=== PATIENT | female | born 1975 | race Caucasian/White ===

== ENCOUNTER 2022-12-22 10:27 | Emergency (ER) | payer BC, SELFPAY ==
[2022-12-22 10:43] VITALS: BP 148/94; PULSE 75; RESP 16; TEMP 36.1; O2SAT 99; BMI 43.4
--- NOTE | 2022-12-22 11:44 | CRLHL7_ITS ---
For Patients: As a result of the Century Cures Act, medical imaging exams and procedure reports are released immediately into your electronic medical record. You may view this report before your referring provider. If you have questions, please contact your health care provider. INDICATION: Dysfunctional bleeding. TECHNIQUE: Ultrasound pelvis transabdominal and transvaginal for better assessment or to better visualize the endometrium. Real-time sonographic images with spectral and color Doppler imaging of the ovaries were obtained. COMPARISON: None. FINDINGS: Uterus: 10.0 x 4.8 x 5.1 cm. Normal echotexture of the myometrium. Possible 2.1 centimeter intramural fibroid along the fundus. Postsurgical changes of scar along the anterior lower uterine segment, measuring 1.7 x 2.1 x 1.3 centimeters, and encroaching the endocervical/endometrial canal with some scant vascularity. Endometrium: Transvaginal imaging was performed to better evaluate the endometrium. Endometrial thickness measures 11 mm. No sign of endometrial mass or fluid. Right ovary is not seen. Left ovary 4.2 x 3.7 x 3.3 centimeters. No left ovarian or adnexal masses. Normal arterial and venous blood flow is demonstrated in left ovary. 3.7 centimeter simple appearing left ovarian cyst. Cul-de-sac: No significant free fluid. IMPRESSION: Probable 2.1 centimeter intramural fibroid along the fundus. Postsurgical changes of scar along the anterior lower uterine segment, measuring 1.7 x 2.1 x 1.3 centimeters, and encroaching the endocervical/endometrial canal with some scant vascularity. Consider direct visualization for further evaluation. Otherwise, normal uterus and endometrium. Nonvisualization of the right ovary. Normal left ovary with 3.7 centimeter simple ovarian cyst. Dictated by Brett Grewal MD @ 12/22/2022 1:20:21 PM (Electronically Signed)
--- NOTE | 2022-12-22 11:45 | ED_ITS ---
HPI - General Adult General Chief complaint: Vaginal Bleeding Stated complaint: Heavy menstrual bleeding Time Seen by Provider: 12/22/22 11:32 History of Present Illness HPI narrative: This 47-year-old female comes in because of vaginal bleeding and cramping that began this morning. She has had dysfunctional uterine bleeding in the past and had an ablation about a year ago. She has had endometrial biopsies with negative results. She is not taking any hormones. 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 She states that her vaginal bleeding stopped several months ago when she started taking cromolyn. She feels that the dysfunctional uterine bleeding and mast cell disease are somehow related. She does not report any lightheadedness or shortness of breath. She states that she saturated 3 pads in 75 minutes. She does not report any fevers. She continues to have some pain but denies any treatments at this time. Related Data Home Medications Medication Instructions Recorded Confirmed clobetasol 0.05 % topical foam g topical 11/02/22 11/02/22 cromolyn 5.2 mg/spray (4 %) nasal 1 spray intranasal Q6H PRN 11/02/22 12/22/22 spray dextroamphetamine-amphetamine ER 40 mg PO DAILY 11/02/22 12/22/22 20 mg 24hr capsule,extend release (Adderall XR) epinephrine 0.3 mg/0.3 mL 0.3 ml IM PRN 11/02/22 11/02/22 injection, auto-injector fluticasone 250 mcg-salmeterol 50 1 inh inhalation Q12H 11/02/22 12/22/22 mcg/dose blistr powdr for inhalation (Advair Diskus) hydroxyzine HCl 25 mg tablet 25 mg PO Q8H 11/02/22 12/22/22 montelukast 10 mg tablet 10 mg PO HS 11/02/22 12/22/22 cetirizine 10 mg capsule (All Day 10 mg PO BID PRN 12/22/22 12/22/22 Allergy (cetirizine)) famotidine 40 mg tablet (Pepcid) 40 mg PO BID 12/22/22 12/22/22 fluticasone propionate 50 2 spray intranasal DAILY PRN 12/22/22 12/22/22 mcg/actuation nasal spray,suspension (Flonase Allergy Relief) Previous Rx's Medication Instructions Recorded tranexamic acid 650 mg tablet 1,300 mg PO TID PRN #30 tabs 12/22/22 Allergies Allergy/AdvReac Type Severity Reaction Status Date / Time Cephalosporins Allergy Intermediate Rash Verified 12/22/22 10:49 penicillin G Allergy Intermediate Rash Verified 12/22/22 10:49 Sulfa (Sulfonamide Allergy Intermediate Rash Verified 12/22/22 10:49 Antibiotics) fexofenadine [From Rahel] Allergy Mild Rash Verified 12/22/22 10:49 clartin Allergy Mild rash Uncoded 12/22/22 10:49 Review of Systems Status of ROS: Reports: 10 or more systems reviewed and unremarkable except as noted in History and below Narrative: Constitutional: No fevers, no weight gain or loss. Eyes: No discharge. No vision changes. HENT: No congestion, no sore throat, no ear pain. Cardiovascular: No chest pain, no palpitations. Respiratory: No shortness of breath, no wheezes, no cough. Gastrointestinal: No vomiting, no diarrhea. Crampy abdominal pain. Genitourinary: No dysuria, no hematuria. Dysfunctional uterine bleeding. She is still menstruating. Musculoskeletal: Normal range of motion. Skin: No rashes, no pruritis. Neurological: No dizziness, weakness, sensory change, speech change. Endo/Heme/Allergies: No bruising or bleeding. No polydipsia. Pysch: no suicidality, no anxiety, no insomnia. All other systems reviewed and are negative. [facility] Social History Smoking Status: Never smoker Do you use any of these nicotine containing products: None Second hand tobacco smoke exposure: No How often do you have a drink containing alcohol: never How often do you have six or more drinks on one occasion: Never AUDIT-C Alcohol total score: 0 Non-prescribed substance use: denies use service: No Exam Narrative: Exam Narrative: Constitutional: Well-developed, well-nourished, no acute distress. HEENT: Normocephalic, atraumatic. Neck: Normal range of motion. Nontender. Supple. Heart: Regular. No murmurs. Normal rate. Intact distal pulses. Lungs: Clear to auscultation. No chest discomfort. No wheezes, rhonchi, or rales. Abdomen: Normal bowel sounds. Tenderness in the lower abdomen. No rebound tenderness. Genitalia: Deferred. Back: No midline tenderness. Normal range of motion. Extremities: Normal range of motion. No injury. Skin: Intact. No rash. Warm. No erythema or pallor. Neurologic: No altered sensation. No weakness. Alert and oriented. Psychiatric: No suicidality. No anxiety or depression. No insomnia. Nursing notes and vitals signs are reviewed. Const: Vital Signs, click to edit/add: Vital Signs - 24 hr 12/22/22 10:43 12/22/22 13:56 Temperature 97.0 F L 98.1 F Pulse Rate [Right Pulse Oximeter] 75 76 Respiratory Rate 16 18 Blood Pressure [Ri ght Upper Arm] 148/94 H 147/94 H Pulse Oximetry 99 99 Oxygen Delivery Me thod Room Air Room Air Course Vital Signs Vital signs: Initial Vital Signs Temperature 97.0 F L 12/22/22 10:43 Temperature Source Temporal Artery Scan 12/22/22 10:43 Pulse Rate 75 12/22/22 10:43 Respiratory Rate 16 12/22/22 10:43 Blood Pressure 148/94 H 12/22/22 10:43 Blood Pressure Mean 112 12/22/22 10:43 Blood Pressure Position Sitting 12/22/22 10:43 Pulse Oximetry 99 12/22/22 10:43 Oxygen Delivery Method 12/22/22 10:43 Vital Signs Temperature 97.0 F L 12/22/22 10:43 Pulse Rate 75 12/22/22 10:43 Respiratory Rate 16 12/22/22 10:43 Blood Pressure 148/94 H 12/22/22 10:43 Pulse Oximetry 99 12/22/22 10:43 Oxygen Delivery Method 12/22/22 10:43 Temperature 98.1 F 12/22/22 13:56 Pulse Rate 76 12/22/22 13:56 Respiratory Rate 18 12/22/22 13:56 Blood Pressure 147/94 H 12/22/22 13:56 Pulse Oximetry 99 12/22/22 13:56 Oxygen Delivery Method 12/22/22 13:56 Medical Decision Making MDM Narrative Medical decision making narrative: This patient comes in with sizable amount of uterine bleeding. She saturated through her clothes while at work today. She did have some significant cramping at the time and continues to have some pain. Her hemoglobin returns in normal range and vital signs are normal also. This patient has some underlying complic ating factors including mast cell disease and connective tissue disorder. I did speak with the OBGYN physician on-call, Dr. Morales, who recommended using tranexamic acid to help with symptoms. This is most likely an anovulatory menses as she is approaching menopause. The patient is okay to return home and is encouraged to follow-up with her primary physician. She does have a follow- up appointment in 3 days. A prescription for tranexamic acid is provided. Lab Data Labs: Lab Results 12/22/22 12/22/22 12/22/22 Range/Units 11:55 11:55 11:55 WBC 10.26 (4.50-11.00) K/uL RBC 5.18 (4.00-5.20) m/uL Hgb 14.4 (12.0-16.0) gm/dL Hct 45.2 (33.0-51.0) % MCV 87 (80-100) fL MCH 28 (26-34) pg MCHC 32 (32-36) gm/dL RDW Coeff of Santos 13.1 (11.5-15.5) % Plt Count 339 (140-440) K/uL Neut % (Auto) 72.0 (42.0-72.0) % Lymph % (Auto) 19.9 L (20-44) % Carver % (Auto) 6.3 (0.0-11.0) % Eos % (Auto) 1.6 (0.0-7.0) % Baso % (Auto) 0.1 (0.0-3.0) % Neut # (Auto) 7.39 H (1.7-7.0) K/uL Lymph # (Auto) 2.00 (0.90-2.90) K/uL Carver # (Auto) 0.60 (0.00-0.90) K/UL Eos # (Auto) 0.16 (0.00-0.50) K/uL Baso # (Auto) 0.01 (0.00-0.30) K/uL Sodium 139 (135-149) mmol/L Potassium 3.7 (3.6-5.1) mmol/L Chloride 105 (96-114) mmol/L Carbon Dioxide 30 (20-32) mmol/L BUN 10 (5-24) mg/dL Creatinine 0.6 (0.5-1.5) mg/dL Estimated Creat Clear 99.02 Estimated GFR 111 ml/min Glucose 86 (60-115) mg/dL Calcium 8.9 (8.4-10.6) mg/dL HCG, Qual Negative (Negative) Imaging Data US Pelvic: Radiologist's impression: FINDINGS: Uterus: 10.0 x 4.8 x 5.1 cm. Normal echotexture of the myometrium. Possible 2.1 centimeter intramural fibroid along the fundus. Postsurgical changes of scar along the anterior lower uterine segment, measuring 1.7 x 2.1 x 1.3 centimeters, and encroaching the endocervical/endometrial canal with some scant vascularity. Endometrium: Transvaginal imaging was performed to better evaluate the endometrium. Endometrial thickness measures 11 mm. No sign of endometrial mass or fluid. Right ovary is not seen. Left ovary 4.2 x 3.7 x 3.3 centimeters. No left ovarian or adnexal masses. Normal arterial and venous blood flow is demonstrated in left ovary. 3.7 centimeter simple appearing left ovarian cyst. Cul-de-sac: No significant free fluid. IMPRESSION: Probable 2.1 centimeter intramural fibroid along the fundus. Postsurgical changes of scar along the anterior lower uterine segment, measuring 1.7 x 2.1 x 1.3 centimeters, and encroaching the endocervical/endometrial canal with some scant vascularity. Consider direct visualization for further evaluation. Otherwise, normal uterus and endometrium. Nonvisualization of the right ovary. Normal left ovary with 3.7 centimeter simple ovarian cyst. Discharge Plan Discharge Clinical Impression: Dysfunctional uterine bleeding Patient Disposition: Home, Self-Care Condition: Stable Additional Instructions: Take medication as indicated and needed. Follow up with MD as scheduled or return if worsening. Prescriptions: New tranexamic acid 650 mg tablet 1,300 mg PO TID PRNQty: 30 2RF No Action cromolyn 5.2 mg/spray (4 %) spray,non-aerosol 1 spray intranasal Q6H PRN Label Comments: INHALE 1 SPRAY IN EACH NOSTRIL EVERY 6 HOURS NEEDED fluticasone propion-salmeterol [Advair Diskus] 250-50 mcg/dose blister with device 1 inh inhalation Q12H montelukast 10 mg tablet 10 mg PO HS Label Comments: TAKE 1 TABLET BY MOUTH EVERYDAY AT BEDTIME hydroxyzine HCl 25 mg tablet 25 mg PO Q8H Label Comments: TAKE 2 TABLETS (50 MG) BY MOUTH 3 TIMES DAILY. clobetasol 0.05 % foam topical Label Comments: APPLY TOPICALLY TO AFFECTED AREA(S) 2 TIMES DAILY dextroamphetamine-amphetamine [Adderall XR] 20 mg capsule,extended release 24hr 40 mg PO DAILY epinephrine 0.3 mg/0.3 mL auto-injector 0.3 ml IM PRN Label Comments: INJECT 0.3 MG INTRAMUSCULAR ONE TIME FOR 1 DOSE. All Day Allergy (cetirizine) 10 mg capsule 10 mg PO BID PRN famotidine [Pepcid] 40 mg tablet 40 mg PO BID fluticasone propionate [Flonase Allergy Relief] 50 mcg/actuation spray,suspension 2 spray intranasal DAILY PRN Rx Instructions: administer into each nostril Follow Up/Referrals: Consuelo Lees PA-C [Referring] - Stand Alone Forms: [facility] Info Instructions
[2022-12-22 12:08] LABS: Basophils Absolute Auto 0.01 K/uL (0.00-0.30); Basophils Percent Auto 0.1 % (0.0-3.0); Eosinophils Absolute Auto 0.16 K/uL (0.00-0.50); Eosinophils Percent Auto 1.6 % (0.0-7.0); Hematocrit 45.2 % (33.0-51.0); Hemoglobin* 14.4 gm/dL (12.0-16.0); Immature Granulocytes Abs Auto 0.01 K/uL (0.00-0.30); Immature Granulocytes Pct Auto 0.1 %; Lymphocytes Percent Auto 19.9 % (20-44); Mean Corpuscular HGB Conc 32 gm/dL (32-36); Mean Corpuscular Hemoglobin 28 pg (26-34); Mean Corpuscular Volume 87 fL (80-100); Monocytes Percent Auto 6.3 % (0.0-11.0); Neutrophils Absolute Auto 7.39 K/uL (1.7-7.0); Platelet Count* 339 K/uL (140-440); RDW Coefficient of Variation % 13.1 % (11.5-15.5); Red Blood Count 5.18 m/uL (4.00-5.20); White Blood Count* 10.26 K/uL (4.50-11.00)
[2022-12-22 12:16] LABS: Slide Review Reflex No
[2022-12-22 12:23] LABS: Chloride* 105 mmol/L (96-114); Potassium* 3.7 mmol/L (3.6-5.1); Sodium* 139 mmol/L (135-149)
[2022-12-22 12:26] LABS: Blood Urea Nitrogen* 10 mg/dL (5-24); Carbon Dioxide* 30 mmol/L (20-32); Creatinine* 0.6 mg/dL (0.5-1.5); Est. Creatinine Clearance* 99.02; Estimated Glomerular Filt Rate 111 ml/min
[2022-12-22 12:27] LABS: Calcium* 8.9 mg/dL (8.4-10.6); Glucose* 86 mg/dL (60-115)
[2022-12-22 12:36] LABS: HCG Qualitative Serum* Negative (Negative)
[2022-12-22 13:56] VITALS: BP 147/94; PULSE 76; RESP 18; TEMP 36.7; O2SAT 99
--- NOTE | 2022-12-22 14:52 | ED.NURSE ---
did want to speak to dr mahoney. will have an add on inr test. dr mahoney did speak to sue. does want to go home.
[2022-12-22 15:12] LABS: INR 0.88 (0.91-1.10); Prothrombin Time 12.5 Seconds
--- NOTE | 2022-12-22 15:56 | ED.NURSE ---
was called and aware of inr of 0.88.
== END 2022-12-22 14:58 | disposition home or self-care (01) ==
PROVIDERS: Emergency Provider Emergency Medicine Emergency Medical Services; PCP Student in an Organized Health Care Education/Training Program
DX: N93.8 Other specified abnormal uterine and vaginal bleeding (principal)
CPT/HCPCS: 36415; 76830; 80048; 84703; 85025; 85610; 93976; 99284

== ENCOUNTER 2023-02-06 09:36 | Emergency (ER) | payer BC, SELFPAY ==
[2023-02-06 09:45] VITALS: BP 145/86; PULSE 95; RESP 18; TEMP 36.4; O2SAT 96; BMI 42.9
--- NOTE | 2023-02-06 09:55 | CRLHL7_ITS ---
For Patients: As a result of the Cures Act, medical imaging exams and procedure reports are released immediately into your electronic medical record. You may view this report before your referring provider. If you have questions, please contact your health care provider. Indication: FALL, CONTUSION Technique: Forearm two views left Comparison: None Findings: Soft tissue density are present. No joint effusion or fracture. No dislocation. Impression: No acute fracture. Dictated by Gautam Anna MD @ 02/06/2023 10:16:35 AM (Electronically Signed)
--- NOTE | 2023-02-06 09:57 | ED_ITS ---
HPI - General Adult General Chief complaint: Extremity Pain/Injury, Upper Stated complaint: Fall, L arm injury Time Seen by Provider: 02/06/23 09:55 Source: patient Mode of arrival: ambulatory Limitations: no limitations History of Present Illness HPI narrative: Patient is a 47-year-old woman who had a procedure done recently on her right foot so she has been on the splint. She has a little bit of limited mobility in her ankle and she thinks as a result she caught her foot when she was getting in the shower, slipped and then hit her left forearm on the edge of the shower door frame. She complains of pain in the left forearm which she says is severe. She notes that she has a high pain tolerance. There is no significant swelling, no bruising or deformity. She has been icing it which she thinks has helped. The wrist itself and elbow are not significantly painful and she is able to move her wrist although it causes some pain in the forearm. Hand is not affected. The postsurgical ankle is a little more sore as well although she does not think that it is significantly injured. No head or neck injury reported. No loss of consciousness. Related Data Home Medications Medication Instructions Recorded Confirmed clobetasol 0.05 % topical foam g topical 11/02/22 11/02/22 cromolyn 5.2 mg/spray (4 %) nasal 1 spray intranasal Q6H PRN 11/02/22 12/22/22 spray dextroamphetamine-amphetamine ER 40 mg PO DAILY 11/02/22 12/22/22 20 mg 24hr capsule,extend release (Adderall XR) epinephrine 0.3 mg/0.3 mL 0.3 ml IM PRN 11/02/22 11/02/22 injection, auto-injector fluticasone 250 mcg-salmeterol 50 1 inh inhalation Q12H 11/02/22 12/22/22 mcg/dose blistr powdr for inhalation (Advair Diskus) hydroxyzine HCl 25 mg tablet 25 mg PO Q8H 11/02/22 12/22/22 montelukast 10 mg tablet 10 mg PO HS 11/02/22 12/22/22 cetirizine 10 mg capsule (All Day 10 mg PO BID PRN 12/22/22 12/22/22 Allergy (cetirizine)) famotidine 40 mg tablet (Pepcid) 40 mg PO BID 12/22/22 12/22/22 fluticasone propionate 50 2 spray intranasal DAILY PRN 12/22/22 12/22/22 mcg/actuation nasal spray,suspension (Flonase Allergy Relief) Previous Rx's Medication Instructions Recorded tranexamic acid 650 mg tablet 1,300 mg PO TID PRN #30 tabs 12/22/22 Allergies Allergy/AdvReac Type Severity Reaction Status Date / Time Cephalosporins Allergy Intermediate Rash Verified 12/22/22 10:49 penicillin G Allergy Intermediate Rash Verified 12/22/22 10:49 Sulfa (Sulfonamide Allergy Intermediate Rash Verified 12/22/22 10:49 Antibiotics) fexofenadine [From Rahel] Allergy Mild Rash Verified 12/22/22 10:49 clartin Allergy Mild rash Uncoded 12/22/22 10:49 Review of Systems Status of ROS: Reports: 6 or more systems reviewed and unremarkable except as noted in History and below [facility] Social History Smoking Status: Never smoker Do you use any of these nicotine containing products: None Second hand tobacco smoke exposure: No How often do you have a drink containing alcohol: never How often do you have six or more drinks on one occasion: Never AUDIT-C Alcohol total score: 0 Non-prescribed substance use: denies use service: No Exam Narrative: Exam Narrative: Vital signs reviewed In general, an alert, well-appearing woman. Head: Normocephalic, atraumatic. Extremities: the left forearm is slightly reddened in appearance I think secondary to the ice that she has had on it. She notes diffuse tenderness to light touch over the forearm, therefore I did not do much in the way of palpation of the forearm. I did palpate over the elbow and wrist, both of which are nontender. No snuffbox tenderness. Distal CMS is normal. On the right ankle, I removed the splint. Incisions are intact, well healed without any surrounding erythema or significant swelling. She does have mild diffuse swelling of the foot and ankle which she says is stable. Skin: Warm and dry. Intact. Neurologic: She is alert, conversant, speech fluent. Const: Vital Signs, click to edit/add: Vital Signs - 24 hr 02/06/23 09:45 Temperature 97.5 F L Pulse Rate [Right Femoral] 95 Respiratory Rate 18 Blood Pressure [Ri t Upper Arm] 145/86 H Pulse Oximetry 96 Oxygen Delivery Me thod Room Air Documenting provider has reviewed patient's vital signs: yes Course Course Hospital Course: Discussed with her that to my eye a the right ankle looks normal in appearance aside from post surgical changes. I would recommend that she see how this does over the next couple of days. If she is continuing to feel that it is more sore, would recommend that she follow this up with her surgeon. With regard to her forearm, x-rays of the left forearm by my review are negative for acute bony pathology. Final radiology review is likewise negative. Would recommend ice, ibuprofen if needed. Anticipate this will improve over the next few days, if not, follow up with primary care. Vital Signs Vital signs: Initial Vital Signs Temperature 97.5 F L 02/06/23 09:45 Temperature Source Temporal Artery Scan 02/06/23 09:45 Pulse Rate 95 02/06/23 09:45 Respiratory Rate 18 02/06/23 09:45 Blood Pressure 145/86 H 02/06/23 09:45 Blood Pressure Mean 105 02/06/23 09:45 Blood Pressure Position Sitting 02/06/23 09:45 Pulse Oximetry 96 02/06/23 09:45 Oxygen Delivery Method Room Air 02/06/23 09:45 Vital Signs Temperature 97.5 F L 02/06/23 09:45 Pulse Rate 95 02/06/23 09:45 Respiratory Rate 18 02/06/23 09:45 Blood Pressure 145/86 H 02/06/23 09:45 Pulse Oximetry 96 02/06/23 09:45 Oxygen Delivery Method Room Air 02/06/23 09:45 Temperature 97.5 F L 02/06/23 09:45 Pulse Rate 95 02/06/23 09:45 Respiratory Rate 18 02/06/23 09:45 Blood Pressure 145/86 H 02/06/23 09:45 Pulse Oximetry 96 02/06/23 09:45 Oxygen Delivery Method Room Air 02/06/23 09:45 Discharge Plan Discharge Clinical Impression: Contusion of left arm Patient Disposition: Home, Self-Care Condition: Stable Instructions: Contusion in Adults (ED) Additional Instructions: Ice, ibuprofen, Tylenol as needed. Should start to improve over the next 2 days, if not, follow up with her primary doctor. Keep an eye on your ankle for a couple of days, if you feel that it is not improving, check in with your surgeon. Prescriptions: No Action cromolyn 5.2 mg/spray (4 %) spray,non-aerosol 1 spray intranasal Q6H PRN Patient Comments: INHALE 1 SPRAY IN EACH NOSTRIL EVERY 6 HOURS NEEDED fluticasone propion-salmeterol [Advair Diskus] 250-50 mcg/dose blister with device 1 inh inhalation Q12H montelukast 10 mg tablet 10 mg PO HS Patient Comments: TAKE 1 TABLET BY MOUTH EVERYDAY AT BEDTIME hydroxyzine HCl 25 mg tablet 25 mg PO Q8H Patient Comments: TAKE 2 TABLETS (50 MG) BY MOUTH 3 TIMES DAILY. clobetasol 0.05 % foam topical Patient Comments: APPLY TOPICALLY TO AFFECTED AREA(S) 2 TIMES DAILY dextroamphetamine-amphetamine [Adderall XR] 20 mg capsule,extended release 24hr 40 mg PO DAILY epinephrine 0.3 mg/0.3 mL auto-injector 0.3 ml IM PRN Patient Comments: INJECT 0.3 MG INTRAMUSCULAR ONE TIME FOR 1 DOSE. All Day Allergy (cetirizine) 10 mg capsule 10 mg PO BID PRN famotidine [Pepcid] 40 mg tablet 40 mg PO BID fluticasone propionate [Flonase Allergy Relief] 50 mcg/actuation spray,suspension 2 spray intranasal DAILY PRN Rx Instructions: administer into each nostril tranexamic acid 650 mg tablet 1,300 mg PO TID PRNQty: 30 2RF Follow Up/Referrals: JOSEPH MONTANEZ DO [Primary Care Provider] - Stand Alone Forms: [facility] Info Instructions
== END 2023-02-06 10:29 | disposition home or self-care (01) ==
PROVIDERS: Emergency Provider Emergency Medicine; PCP Student in an Organized Health Care Education/Training Program
DX: M79.632 Pain in left forearm (principal); W18.09XA Striking against other object with subsequent fall, initial encounter
CPT/HCPCS: 73090; 99283; 99284

== ENCOUNTER 2023-04-08 07:30 | Outpatient (RCR) | payer BC, SELFPAY | END 2023-07-01 11:00 | disposition home or self-care (01) | PROVIDERS: PCP Student in an Organized Health Care Education/Training Program; Visit Provider Orthopaedic Surgery Foot and Ankle Surgery | DX: Z48.89 Encounter for other specified surgical aftercare (principal); Z51.89 Encounter for other specified aftercare | CPT/HCPCS: 97110; 97116; 97140; 97161 ==

== ENCOUNTER 2023-07-05 20:56 | Outpatient (CLI) | payer BC, SELFPAY | END 2023-07-05 20:57 | disposition home or self-care (01) | LOC: SLEEP 20:56 | PROVIDERS: PCP Student in an Organized Health Care Education/Training Program; Visit Provider Internal Medicine | DX: G47.33 Obstructive sleep apnea (adult) (pediatric) (principal) | CPT/HCPCS: 95810; A9270 ==